=== PATIENT | female | born 1975 | race Caucasian/White ===

== ENCOUNTER 2016-10-11 12:41 | Emergency (ER) | payer OTHER ==
[2016-10-11 12:46] VITALS: BP 113/82; PULSE 67; TEMP 98.8; BMI 36.4
[2016-10-11] MEDS ORDERED: KETOROLAC TROMETHAMINE 60 MG/2 ML VIAL ONE (13:17)
[2016-10-11] MEDS ORDERED: DEXAMETHASONE 4 MG TABLET (FP) ONE (13:17)
[2016-10-11] MEDS ORDERED: DEXAMETHASONE SOD PHOSPHATE 10 MG/1 ML VIAL IM ONE (13:20)
[2016-10-11] MEDS ORDERED: KETOROLAC TROMETHAMINE 60 MG/2 ML VIAL IM ONE (13:20)
--- NOTE | 2016-10-11 13:28 | PDOC ---
History of Present Illness - General Chief Complaint: Pain Stated Complaint: PAIN Time Seen by Provider: 10/11/16 13:05 History Source: Patient Exam Limitations: No Limitations - History of Present Illness Initial Comments: 10/11/16 13:20 Patient came for evaluation of severe right elbow pain, states has had no changes in exercise, activity, no recent trauma. Has had problems with her low back. Took a Naprosyn last night with minimal resolved. Denies numbness or tingling to hand, but movement of hand and grasp reproduces pain 10/11/16 13:24 Occurred: reports: last week Severity: reports: moderate Pain Location: reports: upper extremity Method of Injury: Yes: unknown Modifying Factors: improves with: None, pain medication Associated Symptoms (Fall): denies symptoms Past History - Travel Traveled outside of the country in the last 30 days: No Close contact w/someone who was outside of country & ill: No - Past Medical History Allergies/Adverse Reactions: Allergies Allergy/AdvReac Type Severity Reaction Status Date / Time No Known Allergies Allergy Verified 10/11/16 12:45 Home Medications: Ambulatory Orders Azithromycin [Zithromax Z-MATHEW (5 DAYS)] 250 mg PO ASDIR #6 tablet 07/15/13 No Home Medications 0 dose .ROUTE UTDICT 07/15/13 Cyclobenzaprine HCl [Flexeril -] 5 mg PO TID PRN #12 tablet 05/15/16 Naproxen [Naprosyn -] 500 mg PO BID PRN #14 tablet 05/15/16 Naproxen [Naprosyn -] 500 mg PO BID #30 tablet 10/11/16 Anemia: Yes Kidney Stones: Yes Psychiatric Problems: Yes (BIPOLAR) Other medical history: PCSD - Surgical History Cholecystectomy: Yes Gastric Stapling: No (GASTRIC SLEEVE) GI Surgery: Yes - Psycho/Social/Smoking Cessation Hx Anxiety: No Suicidal Ideation: No Smoking History: Never smoked Hx Alcohol Use: No Drug/Substance Use Hx: No Substance Use Type: None Trauma Specific PMHX - Complaint Specific PMHX Back Injury: Yes Review of Systems - Review of Systems Able to Perform ROS?: Yes Is the patient limited Faroese proficient: Yes Constitutional: Yes: Symptoms Reported, See HPI. No: Fever HEENTM: No: Symptoms Reported Respiratory: No: Symptoms reported Musculoskeletal: Yes: Symptoms Reported, See HPI, Joint Swelling Neurological: Yes: Symptoms reported, See HPI All Other Systems: Reviewed and Negative *Physical Exam - Vital Signs Last Vital Signs Temp Pulse Resp BP Pulse Ox 98.8 F 67 20 113/82 98 10/11/16 12:42 10/11/16 12:42 10/11/16 12:42 10/11/16 12:42 10/11/16 12:42 - Physical Exam General Appearance: Yes: Nourished, Appropriately Dressed, Apparent Distress, Mild Distress HEENT: positive: ERNESTO, Normal ENT Inspection, TMs Normal, Pharynx Normal Neck: positive: Supple Respiratory/Chest: positive: Lungs Clear Musculoskeletal: positive: Normal Inspection, Decreased Range of Motion, Other ( neurovascular intact to hand, radial and ulnar pulses strong). negative: Vertebral Tenderness Extremity: positive: Normal Capillary Refill, Tender. negative: Normal Inspection (no redness, swelling, or lesions noted to elbow joint. Unable to extend without pain at lateral epicondyles past 20), Normal Range of Motion ( tenderness with extension at elbow, reproduced tenderness with supination and pronation at wrist and movement of fingers with tenderness insertion sites of lateral elbow.) Integumentary: positive: Normal Color, Dry, Warm Neurologic: positive: casino runner II-XII NML intact, Fully Oriented, Alert, Normal Mood/ Affect, Normal Response, Motor Strength 5/5 Progress Note - Progress Note Progress Note: Lateral epicondylitis, will treat with NSAIDs and 1 dose of Decadron today. Encouraged follow-up with or so for further evaluation/possible treatment *DC/Admit/Observation/Transfer Diagnosis at time of Disposition: Epicondylitis, lateral, right - Discharge Dispostion Disposition: HOME Condition at time of disposition: Stable Admit: No - Referrals Referrals: Deion Sams MD [Staff Physician] - - Patient Instructions Printed Discharge Instructions: DI for Lateral Epicondylitis (Tennis Elbow) Additional Instructions: Rest, ice to area on and off for 15 minutes 4-6 times a day Avoid heavy lifting or exercise until pain and swelling is resolved or until further directed Keep area highly elevated to reduce swelling Use splints/Billy wrap as directed Followup with orthopedist in one to 2 days if not improving, if significantly improved may wait one week for followup with orthopedist May use Naprosyn 500mg mg tablets every 8 hours as needed for pain
== END 2016-10-11 13:40 | disposition home or self-care (01) ==
LOC: JERFT 12:41
PROC: 3E0233Z Introduction of Anti-inflammatory into Muscle, Percutaneous Approach (ICD-10-PCS; principal; 2016-10-11)
PROC: 3E0233Z Introduction of Anti-inflammatory into Muscle, Percutaneous Approach (ICD-10-PCS; 2016-10-11)
DX: M77.11 Lateral epicondylitis, right elbow (principal)
CPT/HCPCS: 96372; 99281-25

== ENCOUNTER 2016-12-05 10:07 | Emergency (ER) | payer OTHER ==
[2016-12-05 10:41] VITALS: BMI 35.6
--- NOTE | 2016-12-05 11:14 | PDOC ---
History of Present Illness - General History Source: Unavil. due to pt. cond. <Carlito Ramires - Last Filed: 12/05/16 11:13> - General History Source: Patient Exam Limitations: No Limitations - History of Present Illness Initial Comments: 12/05/16 12:02 The patient is a 41 year old female, with a significant past medical history of migraines, anemia, kidney stones, bipolar disorder, and depression, who presents to the emergency department complaining of migraines for approximately 3 days. Patient reports her migraine has worsened since they began. Yesterday, she reports she felt as if she were going to pass out, secondary to migraine and dizziness. Patient reports when she went to sit down to see if her dizziness would resolve, but upon bending to sit she fell down five steps. Patient reports trauma to her neck, right scapula, and right side of her body. She denies any other head trauma or LOC. Since her fall, patient reports numbness and paresthesias to the hand, right greater than left. She reports photophobia and blurry vision. Patient reports taking tylenol and her migraine medication for her symptoms, with minimal relief. She reports associated nausea and vomiting. She admits she is able to tolerate fluids, but not solids. Patient reports shes had similar migraines in the past. During her previous migraine 1 month ago, patient reports syncopizing. Patient states she has gained approximately 40 pounds in the past month. She reports increased tiredness and dyspnea on exertion secondary to weight gain. Patient report her last menstrual period was at the end of October. She states her periods have been increasingly heavy during the last 4 months and has had to receive a blood transfusion due to anemia. She states she received an ultrasound for her heavy periods, which were negative. During the past month, patient admits to increased stresses in her life. The patient denies any fever, chills, or cough. She denies any chest pain, diaphoresis, or palpitations. She denies any diarrhea , constipation, or changes in urination patterns. Allergies: NKDA Past Surgical History: Cholecystectomy, Gastric Sleeve Social History: Non smoker. No ETOH or drug use <Ajay Torre - Last Filed: 12/05/16 17:08> - General Chief Complaint: Lightheaded Stated Complaint: BACK PAIN/LEG PAIN Past History - Past Medical History Anemia: Yes Kidney Stones: Yes Psychiatric Problems: Yes (BIPOLAR, depression) - Surgical History Cholecystectomy: Yes Gastric Stapling: No (GASTRIC SLEEVE) GI Surgery: Yes - Psycho/Social/Smoking Cessation Hx Anxiety: No Suicidal Ideation: No Smoking History: Never smoked Have you smoked in the past 12 months: No Information on smoking cessation initiated: No Hx Alcohol Use: No Drug/Substance Use Hx: No Substance Use Type: None <Carlito Ramires - Last Filed: 12/05/16 11:13> <Ajay Torre - Last Filed: 12/05/16 17:08> - Past Medical History Allergies/Adverse Reactions: Allergies Allergy/AdvReac Type Severity Reaction Status Date / Time No Known Allergies Allergy Verified 12/05/16 10:41 Home Medications: Ambulatory Orders Aripiprazole 5 mg PO DAILY 12/05/16 Clonazepam 0.5 mg PO BID 12/05/16 Ibuprofen 800 mg PO TID 12/05/16 Sertraline HCl 50 mg PO HS 12/05/16 Sumatriptan Succinate [Imitrex -] 50 mg PO ONCE 12/05/16 Topiramate 25 mg PO BID 12/05/16 Trazodone HCl 100 mg PO HS 12/05/16 Review of Systems - Review of Systems Able to Perform ROS?: Yes Comments:: 12/05/16 12:02 GENERAL/CONSTITUTIONAL: No fever or chills. No weakness. HEAD, EYES, EARS, NOSE AND THROAT: Yes: +Blurry vision, +photophobia. No ear pain or discharge. No sore throat. CARDIOVASCULAR: No chest pain. RESPIRATORY: Yes: +Dyspnea on exertion. No cough, wheezing, or hemoptysis. GASTROINTESTINAL: Yes: +nausea, +vomiting. No diarrhea or constipation. GENITOURINARY: No dysuria, frequency, or change in urination. MUSCULOSKELETAL: Yes: +Right scapula pain, +neck pain. No joint or muscle swelling or pain. SKIN: No rash NEUROLOGIC: Yes: +Migraine, +dizziness. No vertigo, loss of consciousness, or change in strength/sensation. ENDOCRINE: Yes: +Weight gain. No increased thirst. HEMATOLOGIC/LYMPHATIC: Yes: +anemia. No easy bleeding or history of blood clots. ALLERGIC/IMMUNOLOGIC: No hives or skin allergy. <Torre,Giomilsy - Last Filed: 12/05/16 17:08> *Physical Exam - Vital Signs Last Vital Signs Temp Pulse Resp BP Pulse Ox 98.8 F 63 20 148/73 100 12/05/16 10:36 12/05/16 10:36 12/05/16 10:36 12/05/16 10:36 12/05/16 10:36 <Carlito Ramires - Last Filed: 12/05/16 11:13> - Vital Signs Last Vital Signs Temp Pulse Resp BP Pulse Ox 98.8 F 63 20 148/73 100 12/05/16 10:36 12/05/16 10:36 12/05/16 10:36 12/05/16 10:36 12/05/16 10:36 - Physical Exam Comments: 12/05/16 12:09 GENERAL: Obese. Well developed, well nourished. Awake, alert, and fully oriented , in no acute distress HEAD: Normocephalic, no signs of trauma EYES: PERRLA, EOMI, sclera anicteric, conjunctiva clear ENT: Auricles normal inspection, hearing grossly normal, nares patent, oropharynx clear without exudates. Moist mucosa NECK: Normal ROM, supple, no lymphadenopathy, JVD, or masses LUNGS: Breath sounds equal, clear to auscultation bilaterally. No wheezes, and no crackles HEART: Regular rate and rhythm, normal S1 and S2, no murmurs, rubs or gallops ABDOMEN: Soft, nontender, normoactive bowel sounds. No guarding, no rebound. No masses MUSCULOSKELETAL: +R trapezius spasm. +R paraspinal muscle tenderness in lower back. Normal range of motion at all joints. No bony deformities or tenderness. No CVA tenderness. EXTREMITIES: Normal range of motion, no edema. No clubbing or cyanosis. No cords, erythema, or tenderness NEUROLOGICAL: Cranial nerves II through XII grossly intact. Normal speech, normal gait SKIN: Warm, Dry, normal turgor, no rashes or lesions noted. PSYCHIATRIC: Cooperative. Good eye contact. Appropriate mood and affect. <Ajay Torre - Last Filed: 12/05/16 17:08> Heart Score/ECG Review - ECG Intrepretation Comment:: 12/05/16 12:09 Vent Rate: 54 bpm IMPRESSION: Sinus bradycardia with sinus arrhythmia <Ajay Torre - Last Filed: 12/05/16 17:08> ED Treatment Course - LABORATORY CBC & Chemistry Diagram: 12/05/16 11:30 12/05/16 11:30 - RADIOLOGY Radiograph Interpretation: 12/05/16 17:03 EXAM: CT Cervical Spine INTERPRETED BY: Dr. Estrada REVIEWED BY: Dr. Ramires IMPRESSION: Coronal and sagittal reconstruction images were obtained. There is straightening of the cervical spine. No gross fracture, subluxation or prevertebral soft tissue swelling is seen. No jumped facets are identified. There is a 9 mm sclerotic density in C7 vertebral body which is nonspecific. Mild degenerative anterior spondylosis at C5-C6 and C6-C7 level. At C5-C6 level there is mild left paracentral disc bulge with posterior spur formation slightly flattening the left anterior surface of the cervical cord and moderately narrowing the left foramen likely impinging left C6 nerve root. Visualized portion of the airway appears unremarkable. No gross enlarged lymph nodes are identified. Note is made of an approximately 11 mm focal low- attenuation density in left side of the thyroid isthmus for which further evaluation with thyroid ultrasound is needed. Lung windows at the thoracic inlet appear unremarkable. EXAM: Head CT INTERPRETED BY: Dr. Estrada REVIEWED BY: Dr. Ramires IMPRESSION: No significant interval change or acute intracranial pathology is identified. - Medications Given in the ED: ED Medications Discontinued Medications Generic Name Dose Route Start Last Admin Trade Name Freq PRN Reason Stop Dose Admin Acetaminophen 1,000 mg 12/05/16 11:51 12/05/16 12:00 Ofirmev Injection - IVPB 12/05/16 11:52 1,000 mg ONCE ONE Administration <Ajay Torre - Last Filed: 12/05/16 17:08> *DC/Admit/Observation/Transfer - Attestations Physician Attestion: 12/05/16 11:14 I, Dr. Carlito Ramiers, attest that this document has been prepared under my direction and personally reviewed by me in its entirety. I further attest, that it accurately reflects all work, treatment, procedures and medical decision -making performed by me. <Carlito Ramires - Last Filed: 12/05/16 11:13> - Attestations Scribe Attestion: 12/05/16 12:09 Documentation prepared by Ajay Torre, acting as medical claims assistant for Carlito Ramires DO. <Ajay Torre - Last Filed: 12/05/16 17:08> Diagnosis at time of Disposition: Fall, Migraine - Discharge Dispostion Disposition: HOME Condition at time of disposition: Stable - Referrals Referrals: Onelia Hays MD [Staff Physician] - - Patient Instructions Printed Discharge Instructions: DI for Migraine Additional Instructions: You must follow with your primary care physician. You must also follow with your neurologist for your migraines. If your symptoms worsen come back to ER.
[2016-12-05] MEDS ORDERED: ACETAMINOPHEN 1000 MG/100 ML VIAL (NON FORMULARY) IVPB ONE (11:51)
--- NOTE | 2016-12-05 11:51 | PDOC ---
History of Present Illness - General Chief Complaint: Lightheaded Stated Complaint: BACK PAIN/LEG PAIN Time Seen by Provider: 12/05/16 11:13 History Source: Patient Exam Limitations: No Limitations - History of Present Illness Initial Comments: 41 y/o F w/sig PMH migraines, anemia, bipolar disorder, depression presents to ER after falling yesterday from 5 stairs due to feeling faint and having increasingly worsening nausea today. Pt did not lose consciousness upon before or after fall and fall was witnessed by daughter. She has been having worsening migraine symptoms for 3 days which were not relieved with her migraine meds. She states since falling she has had worsening nausea, tingling in right fingertips, pain in back around neck, and some blurry vision. She has been able to tolerate water but is unable to eat. Over the last 4 months pt has been having heavier than usual menstrual periods. LMP was at the end of October. She also reports increased stress in life. Pt reports losing consciousness 1 - 2 months ago and was taken to [facility] and was found to be anemic and transfused for anemia. Past History - Past Medical History Allergies/Adverse Reactions: Allergies Allergy/AdvReac Type Severity Reaction Status Date / Time No Known Allergies Allergy Verified 12/05/16 10:41 Home Medications: Ambulatory Orders Aripiprazole 5 mg PO DAILY 12/05/16 Clonazepam 0.5 mg PO BID 12/05/16 Ibuprofen 800 mg PO TID 12/05/16 Sertraline HCl 50 mg PO HS 12/05/16 Sumatriptan Succinate [Imitrex -] 50 mg PO ONCE 12/05/16 Topiramate 25 mg PO BID 12/05/16 Trazodone HCl 100 mg PO HS 12/05/16 Anemia: Yes Kidney Stones: Yes Psychiatric Problems: Yes (BIPOLAR, depression) - Surgical History Cholecystectomy: Yes Gastric Stapling: No (GASTRIC SLEEVE) GI Surgery: Yes - Psycho/Social/Smoking Cessation Hx Anxiety: No Suicidal Ideation: No Smoking History: Never smoked Have you smoked in the past 12 months: No Information on smoking cessation initiated: No Hx Alcohol Use: No Drug/Substance Use Hx: No Substance Use Type: None Review of Systems - Review of Systems Able to Perform ROS?: Yes Comments:: CONSTITUTIONAL: Absent: fever, chills, diaphoresis, generalized weakness, malaise, loss of appetite HEENT: Absent: rhinorrhea, nasal congestion, throat pain, throat swelling, difficulty swallowing, mouth swelling, ear pain, eye pain, visual Changes CARDIOVASCULAR: +heart racing, light-headedness Absent: chest pain, syncope, palpitations, peripheral edema RESPIRATORY: Absent: cough, shortness of breath, dyspnea with exertion, orthopnea, wheezing, stridor, hemoptysis GASTROINTESTINAL:Absent: abdominal pain, abdominal distension, nausea, vomiting , diarrhea, constipation, melena, hematochezia GENITOURINARY: Absent: dysuria, frequency, urgency, hesitancy, hematuria, flank pain, genital pain MUSCULOSKELETAL: Absent: myalgia, arthralgia, joint swelling SKIN: Absent: rash, itching, pallor HEMATOLOGIC/IMMUNOLOGIC: Absent: easy bleeding, easy bruising, lymphadenopathy, frequent infections ENDOCRINE:Absent: unexplained weight gain, unexplained weight loss, heat intolerance, cold intolerance NEUROLOGIC: +headache, light-headedness, tingling/numbness in R fingertips Absent: focal weakness, dizziness, unsteady gait, seizure, mental status changes , bladder or bowel incontinence PSYCHIATRIC: Absent: anxiety, depression, suicidal or homicidal ideation, hallucinations *Physical Exam - Vital Signs Last Vital Signs Temp Pulse Resp BP Pulse Ox 98.8 F 63 20 148/73 100 12/05/16 10:36 12/05/16 10:36 12/05/16 10:36 12/05/16 10:36 12/05/16 10:36 - Physical Exam Comments: GENERAL: Well developed, well nourished. Awake and alert. No acute distress. HEENT: Normocephalic, atraumatic. PERRLA, EOMI. No conjunctival pallor. Sclera are non-icteric. Moist mucous membranes. Oropharynx clear. NECK: Supple. Full ROM. No lymphadenopathy. CARDIOVASCULAR: Regular rate and rhythm. No murmurs, rubs, or gallops. Distal pulses are 2+ and symmetric. PULMONARY: No evidence of respiratory distress. Lungs clear to auscultation bilaterally. No wheezing, rales or rhonchi. ABDOMINAL: Soft. Obese. Non-tender. Non-distended. No rebound or guarding. No organomegaly. Normoactive bowel sounds. MUSCULOSKELETAL: +R trapezius spasm. +R paraspinal muscle tenderness in lower back. Normal range of motion at all joints. No bony deformities or tenderness. No CVA tenderness. EXTREMITIES: No cyanosis. No edema. SKIN: Warm and dry. Normal capillary refill. No rashes. No jaundice. NEUROLOGICAL: Alert, awake, appropriate. Cranial nerves 2-12 grossly intact. No deficits to light touch in face, upper extremities and lower extremities. No motor deficits in the in face, upper extremities and lower extremities. Normal speech. PSYCHIATRIC: Cooperative. Good eye contact. Appropriate mood and affect. ED Treatment Course - LABORATORY CBC & Chemistry Diagram: 12/05/16 11:30 12/05/16 11:30 - RADIOLOGY Radiology Studies Ordered: Category Date Time Status CERVICAL SPINE CT W/O CONTR [CT] Stat CT Scan 12/05/16 11:[address] WITHOUT CONTRAST [CT] Stat CT Scan 12/05/16 11:38 Ordered CHEST PA & LAT [RAD] Stat Radiology 12/05/16 11:38 Ordered *DC/Admit/Observation/Transfer Diagnosis at time of Disposition: Fall, Migraine - Discharge Dispostion Disposition: HOME Condition at time of disposition: Stable - Referrals Referrals: Onelia Hays MD [Staff Physician] - - Patient Instructions Printed Discharge Instructions: DI for Migraine Additional Instructions: You must follow with your primary care physician. You must also follow with your neurologist for your migraines. If your symptoms worsen come back to ER. - Post Discharge Activity
[2016-12-05 11:53] LABS: URINE APPEARANCE SLCLOUDY; URINE BILIRUBIN NEGATIVE (NEGATIVE); URINE BLOOD NEGATIVE (NEGATIVE); URINE COLOR LTYELLOW; URINE GLUCOSE (UA) NEGATIVE (NEGATIVE); URINE KETONE NEGATIVE (NEGATIVE); URINE NITRITE NEGATIVE (NEGATIVE); URINE PROTEIN NEGATIVE (NEGATIVE); URINE UROBILINOGEN NEGATIVE E.U./dl (0.2-1.0)
[2016-12-05 11:57] LABS: BASOPHIL 0.9 % (0-2.0); EOSINOPHIL 1.4 % (0-4.5); MCHC 31.4 g/dl (32.0-36.0); MEAN CELL VOLUME 73.1 fl (80-96); MEAN PLT VOLUME 7.4 fl (7.5-11.1); NEUTROPHILS 71.1 % (42.8-82.8); PLATELET COUNT 282 K/MM3 (134-434); WHITE BLOOD COUNT 8.2 K/mm3 (4.0-10.0)
[2016-12-05] MEDS ORDERED: ACETAMINOPHEN INJECTION 100 ML IVPB ONE (11:57)
[2016-12-05 12:05] LABS: URINE LEUK ESTERASE 2+ (NEGATIVE)
[2016-12-05 12:20] LABS: URINE MUCUS RARE; URINE RBC 1 /hpf (0-3); URINE WBC 3 /hpf (3-5)
[2016-12-05 12:22] LABS: ALBUMIN 3.5 g/dl (3.4-5.0); ANION GAP 8 (8-16); BILIRUBIN,TOTAL 0.2 mg/dL (0.2-1.0); CALCIUM 7.9 mg/dL (8.5-10.1); CO2 25 mmol/L (21-32); CREATININE 0.7 mg/dL (0.55-1.02); GLUCOSE,RANDOM 85 mg/dL (74-106); SGOT/AST 11 U/L (15-37); SGPT/ALT 17 U/L (12-78); TOT PROT 6.8 g/dl (6.4-8.2)
[2016-12-05 12:30] LABS: ALK PHOS 52 U/L (45-117); THYROID STIMULATING HORMONE 0.71 uIU/ml (0.358-3.74)
[2016-12-05] MEDS ORDERED: ONDANSETRON 4 MG/2 ML VIAL IVPUSH ONE (12:44)
[2016-12-05] MEDS ORDERED: morphine CARPU-JECT 2 MG/1 ML DISP.SYRIN IVPUSH ONE (12:44)
[2016-12-05] MEDS ORDERED: morphine CARPU-JECT 2 MG/1 ML DISP.SYRIN ONE (12:53)
[2016-12-05] MEDS ORDERED: ONDANSETRON 4 MG/2 ML VIAL ONE (12:54)
[2016-12-05 15:32] VITALS: BP 127/78; PULSE 69; TEMP 98.4
--- NOTE | 2016-12-05 16:10 | EKG ---
Test Reason : Blood Pressure : / mmHG Vent. Rate : 054 BPM Atrial Rate : 054 BPM P-R Int : 174 ms QRS Dur : 088 ms QT Int : 452 ms P-R-T Axes : 012 042 025 degrees QTc Int : 428 ms SINUS BRADYCARDIA WITH SINUS ARRHYTHMIA OTHERWISE NORMAL ECG WHEN COMPARED WITH ECG OF 13-NOV-2005 00:52, NO SIGNIFICANT CHANGE WAS FOUND Confirmed by AFUA ROQUE MD ([id number]) on 12/05/2016 4:10:20 PM Referred By: Confirmed By:AFUA ROQUE MD
== END 2016-12-05 15:30 | disposition home or self-care (01) ==
LOC: JER 10:07
PROC: 3E033NZ Introduction of Analgesics, Hypnotics, Sedatives into Peripheral Vein, Percutaneous Approach (ICD-10-PCS; principal; 2016-12-05)
PROC: 3E033NZ Introduction of Analgesics, Hypnotics, Sedatives into Peripheral Vein, Percutaneous Approach (ICD-10-PCS; 2016-12-05)
PROC: 3E033GC Introduction of Other Therapeutic Substance into Peripheral Vein, Percutaneous Approach (ICD-10-PCS; 2016-12-05)
DX: G43.909 Migraine, unspecified, not intractable, without status migrainosus (principal); M54.2 Cervicalgia; M25.511 Pain in right shoulder; W10.8XXA Fall (on) (from) other stairs and steps, initial encounter; Y93.89 Activity, other specified; Y92.038 Other place in apartment as the place of occurrence of the external cause; D64.9 Anemia, unspecified; F31.9 Bipolar disorder, unspecified; Z98.84 Bariatric surgery status
CPT/HCPCS: 36415; 70450-TC; 71020-TC; 72125-TC; 80053; 81003; 81015; 84443; 84703; 85025; 93005; 93010; 96374; 96375; 99283-25

== ENCOUNTER 2017-03-03 10:21 | Emergency (ER) | payer OTHER ==
[2017-03-03 10:31] VITALS: BMI 35.6
[2017-03-03] MEDS ORDERED: METOCLOPRAMIDE HCL INJECTION 10 MG/2 ML VIAL IVPB ONE (11:32)
[2017-03-03] MEDS ORDERED: KETOROLAC TROMETHAMINE 30 MG/1 ML VIAL IVPUSH ONE (11:32)
[2017-03-03] MEDS ORDERED: SODIUM CHLORIDE 1,000 ML IV STA (11:32)
[2017-03-03] MEDS ORDERED: KETOROLAC TROMETHAMINE 30 MG/1 ML VIAL ONE (11:40)
[2017-03-03] MEDS ORDERED: METOCLOPRAMIDE HCL INJECTION 10 MG/2 ML VIAL ONE (11:40)
[2017-03-03 11:58] LABS: URINE APPEARANCE CLEAR; URINE BILIRUBIN NEGATIVE (NEGATIVE); URINE BLOOD 3+ (NEGATIVE); URINE COLOR LTYELLOW; URINE GLUCOSE (UA) NEGATIVE (NEGATIVE); URINE KETONE NEGATIVE (NEGATIVE); URINE LEUK ESTERASE NEGATIVE (NEGATIVE); URINE NITRITE NEGATIVE (NEGATIVE); URINE PROTEIN NEGATIVE (NEGATIVE); URINE UROBILINOGEN NEGATIVE mg/dL (0.2-1.0)
--- NOTE | 2017-03-03 11:59 | PDOC ---
History of Present Illness - General Chief Complaint: Migraine Headache Stated Complaint: HEADACHE Time Seen by Provider: 03/03/17 11:11 History Source: Patient - History of Present Illness Timing/Duration: reports: other Severity: Yes: severe Associated Symptoms: reports: nausea/vomiting. denies: fever/chills Past History - Past Medical History Allergies/Adverse Reactions: Allergies Allergy/AdvReac Type Severity Reaction Status Date / Time No Known Allergies Allergy Verified 03/03/17 10:28 Home Medications: Ambulatory Orders Aripiprazole [Abilify] 20 mg PO DAILY 03/03/17 Sumatriptan Succ/Naproxen Sod [Treximet 85-500 mg Tablet] 1 each PO ASDIR #12 tablet 03/03/17 Anemia: Yes Kidney Stones: Yes Psychiatric Problems: Yes (BIPOLAR, depression) Other medical history: anxeity,panic attachks,migrains - Surgical History Cholecystectomy: Yes Gastric Stapling: No (GASTRIC SLEEVE) GI Surgery: Yes - Psycho/Social/Smoking Cessation Hx Anxiety: No Suicidal Ideation: No Smoking History: Never smoked Have you smoked in the past 12 months: No Information on smoking cessation initiated: No Hx Alcohol Use: No Drug/Substance Use Hx: No Substance Use Type: None Review of Systems - Review of Systems Constitutional: No: Chills, Fever ABD/GI: Yes: Nausea, Vomiting Neurological: Yes: Headache, Dizziness *Physical Exam - Vital Signs Last Vital Signs Temp Pulse Resp BP Pulse Ox 98.3 F 78 18 127/93 100 03/03/17 10:29 03/03/17 10:29 03/03/17 10:29 03/03/17 10:29 03/03/17 10:29 - Physical Exam General Appearance: Yes: Appropriately Dressed. No: Apparent Distress HEENT: positive: Normal Voice Neck: positive: Supple Respiratory/Chest: negative: Respiratory Distress Integumentary: positive: Dry, Warm Neurologic: positive: Fully Oriented, Alert, Normal Mood/Affect, Motor Strength 5/5 Medical Decision Making - Medical Decision Making 03/03/17 11:55 41-year-old female, history of bipolar, PTSD, on abilify, anxiety on clonazepam , migraines, was getting Q2 weeklyy Botox injections which never helped her headache as per patient states neurologist no longer takes her insurance and scheduled to see a new neurologist at [facility] in May. Patient here with diffuse MELÉNDEZ that started yesterday. States pain diffuse, sharp, constant, with a severity of 8 out of 10, and associated with dizziness, nausea, vomiting , similar to her usual migraines. Took Excedrin and Motrin with no relief. see exam MELÉNDEZ Similar to pt's migraine Not relieved w/ otc meds No red flags at this time -pain control in ED and reassess -has neuro f/u 03/03/17 11:59 03/03/17 13:02 03/03/17 13:30 Pt sleeping comfortably in ED. Feels well enough to go home. Will dc w/ small dose of treximet and have pt f/u with neuro 03/03/17 13:35 *DC/Admit/Observation/Transfer Diagnosis at time of Disposition: Headache Qualifiers: Headache type: unspecified Headache chronicity pattern: episodic headache Intractability: not intractable Qualified Code(s): R51 - Headache - Discharge Dispostion Disposition: HOME Condition at time of disposition: Improved - Prescriptions Prescriptions: Sumatriptan Succ/Naproxen Sod [Treximet 85-500 mg Tablet] 1 each PO ASDIR #12 tablet - Patient Instructions Printed Discharge Instructions: Migraine -- Adult Additional Instructions: Take medication as directed and follow-up with your neurologist.
[2017-03-03] MEDS ORDERED: ACETAMINOPHEN 325 MG TABLET (FP) PO ONE (12:54)
--- NOTE | 2017-03-03 12:57 | PDOC ---
*Physical Exam - Vital Signs Last Vital Signs Temp Pulse Resp BP Pulse Ox 98.3 F 78 18 127/93 100 03/03/17 10:29 03/03/17 10:29 03/03/17 10:29 03/03/17 10:29 03/03/17 10:29 ED Treatment Course - ADDITIONAL ORDERS Additional order review: Laboratory Results 03/03/17 11:43 Urine Color Ltyellow Urine Appearance Clear Urine pH 7.0 Urine Protein Negative Urine Glucose (UA) Negative Urine Ketones Negative Urine Blood 3+ H Urine Nitrite Negative Urine Bilirubin Negative Urine Urobilinogen Negative Ur Leukocyte Esterase Negative Urine HCG, Qual Negative - Medications Given in the ED: ED Medications Discontinued Medications Generic Name Dose Route Start Last Admin Trade Name Freq PRN Reason Stop Dose Admin Sodium Chloride 1,000 mls @ 1,000 mls/hr 03/03/17 11:32 03/03/17 11:59 Normal Saline - IV 03/03/17 12:31 1,000 mls/hr ASDIR STA Administration Ketorolac Tromethamine 30 mg 03/03/17 11:32 03/03/17 11:59 Toradol Injection - IVPUSH 03/03/17 11:33 30 mg ONCE ONE Administration Metoclopramide HCl 10 mg 03/03/17 11:32 03/03/17 11:59 Reglan Injection - IVPB 03/03/17 11:33 10 mg ONCE ONE Administration Medical Decision Making - Medical Decision Making 03/03/17 12:56 41 yo F h/o migraines Pt has not been able to follow up with her Neurologist for botox injection Pt presents to the ER with headache similar to prior migraine headache Given Toradol, Reglan Reassess Pt seen by Midlevel Provider under my direct supervision Ancillary studies reviewed I agree with plan as outlined by Midlevel Provider *DC/Admit/Observation/Transfer Diagnosis at time of Disposition: Headache - Discharge Dispostion Disposition: HOME Condition at time of disposition: Improved - Prescriptions Prescriptions: Sumatriptan Succ/Naproxen Sod [Treximet 85-500 mg Tablet] 1 each PO ASDIR #12 tablet - Patient Instructions Printed Discharge Instructions: Migraine -- Adult Additional Instructions: Take medication as directed and follow-up with your neurologist.
[2017-03-03] MEDS ORDERED: ACETAMINOPHEN 325 MG TABLET (FP) ONE (13:11)
[2017-03-03 13:13] LABS: URINE MUCUS RARE; URINE RBC 121 /hpf (0-3); URINE WBC 6 /hpf (3-5)
[2017-03-03 13:50] VITALS: BP 128/81; PULSE 75; TEMP 98.4
== END 2017-03-03 13:52 | disposition home or self-care (01) ==
LOC: JER 10:21
PROC: 3E0333Z Introduction of Anti-inflammatory into Peripheral Vein, Percutaneous Approach (ICD-10-PCS; principal; 2017-03-03)
PROC: 3E033GC Introduction of Other Therapeutic Substance into Peripheral Vein, Percutaneous Approach (ICD-10-PCS; 2017-03-03)
PROC: 3E0337Z Introduction of Electrolytic and Water Balance Substance into Peripheral Vein, Percutaneous Approach (ICD-10-PCS; 2017-03-03)
DX: R51 Headache (principal); F31.9 Bipolar disorder, unspecified; F41.9 Anxiety disorder, unspecified; F41.0 Panic disorder [episodic paroxysmal anxiety]; F43.10 Post-traumatic stress disorder, unspecified; D64.9 Anemia, unspecified; Z98.84 Bariatric surgery status
CPT/HCPCS: 81003; 81015; 84703; 96361; 96374; 96375; 99282-25

== ENCOUNTER 2017-08-21 08:35 | Emergency (ER) | payer OTHER ==
[2017-08-21 08:52] VITALS: BP 150/79; PULSE 77; TEMP 98.7; BMI 39.9
[2017-08-21] MEDS ORDERED: KETOROLAC TROMETHAMINE 60 MG/2 ML VIAL IM ONE (09:32)
[2017-08-21] MEDS ORDERED: CYCLOBENZAPRINE HCL 10 MG TABLET (FP) PO ONE (09:33)
[2017-08-21] MEDS ORDERED: KETOROLAC TROMETHAMINE 60 MG/2 ML VIAL ONE (09:34)
[2017-08-21] MEDS ORDERED: CYCLOBENZAPRINE HCL 10 MG TABLET (FP) ONE (09:35)
--- NOTE | 2017-08-21 09:37 | PDOC ---
History of Present Illness - General Chief Complaint: Back Pain Stated Complaint: PAIN/ LOWER BACK, LEGS Time Seen by Provider: 08/21/17 08:59 History Source: Patient - History of Present Illness Occurred: reports: yesterday Severity: reports: moderate Pain Location: reports: back, lower extremity Past History - Past Medical History Allergies/Adverse Reactions: Allergies Allergy/AdvReac Type Severity Reaction Status Date / Time No Known Allergies Allergy Verified 03/03/17 10:28 Home Medications: Ambulatory Orders Aripiprazole [Abilify] 20 mg PO DAILY 03/03/17 Benzonatate 150 mg PO ASDIR 08/21/17 Clonazepam [Klonopin -] 0.5 mg PO DAILY 08/21/17 Cyclobenzaprine HCl [Flexeril 10 mg] 10 mg PO TID PRN #9 tablet 08/21/17 Ferrous Sulfate 325 mg PO ASDIR 08/21/17 Ibuprofen [Motrin -] 800 mg PO Q6H #30 tablet 08/21/17 Ketorolac Injection [Toradol] 30 mg IJ ASDIR 08/21/17 Sertraline HCl 50 mg PO ASDIR 08/21/17 Topiramate 25 mg PO ASDIR 08/21/17 Trazodone HCl 100 mg PO ASDIR 08/21/17 Anemia: Yes COPD: No Kidney Stones: Yes Psychiatric Problems: Yes (BIPOLAR, depression) - Surgical History Cholecystectomy: Yes Gastric Stapling: No (GASTRIC SLEEVE) GI Surgery: Yes - Suicide/Smoking/Psychosocial Hx Smoking History: Never smoked Have you smoked in the past 12 months: No Information on smoking cessation initiated: No Hx Alcohol Use: No Drug/Substance Use Hx: No Substance Use Type: None Trauma Specific PMHX - Complaint Specific PMHX Back Injury: Yes Review of Systems - Review of Systems Constitutional: No: Chills, Fever Musculoskeletal: Yes: Back Pain, Joint Pain. No: Joint Swelling Neurological: No: Numbness, Tingling, Weakness *Physical Exam - Vital Signs Last Vital Signs Temp Pulse Resp BP Pulse Ox 98.7 F 77 20 150/79 100 08/21/17 08:50 08/21/17 08:50 08/21/17 08:50 08/21/17 08:50 08/21/17 08:50 - Physical Exam General Appearance: Yes: Appropriately Dressed. No: Apparent Distress HEENT: positive: Normal Voice Neck: positive: Supple Respiratory/Chest: negative: Respiratory Distress Gastrointestinal/Abdominal: positive: Soft. negative: Tender Musculoskeletal: positive: Normal Inspection. negative: CVA Tenderness, Vertebral Tenderness Extremity: positive: Normal Inspection, Tender (to anterior knee, no apprehension sign, no e/o joint laxity/instability, able to bear weight) Medical Decision Making - Medical Decision Making 08/21/17 09:33 42-year-old female, history of bipolar disorder, anxiety, depression, sciatica, chronic lower back pain, not on pain meds here with her usual bilateral lower back pain that started yesterday. Pain worse w/ flexion. No radiation of pain and no lower extremity weakness, saddle anesthesia or bowel or bladder incontinence. Patient also complaining of pain to right knee that started several days ago, worse when getting up from a sitting position. See exam Acute on chronic lower back pain No red flags at this time, i.e cauda equina, infxn, etc -pain control and reassess Atraumatic R knee pain Possible patellofemoral syndrome given hx -pain control -ortho f/u 08/21/17 09:55 Reports feeling better with pain meds and requesting discharge at this time *DC/Admit/Observation/Transfer Diagnosis at time of Disposition: Chronic lower back pain Qualifiers: Back pain laterality: unspecified Sciatica presence: with sciatica Sciatica laterality: sciatica laterality unspecified Qualified Code(s): M54.40 - Lumbago with sciatica, unspecified side; G89.29 - Other chronic pain; G89.29 - Other chronic pain - Discharge Dispostion Disposition: HOME Condition at time of disposition: Improved - Prescriptions Prescriptions: Cyclobenzaprine HCl [Flexeril 10 mg] 10 mg PO TID PRN #9 tablet PRN Reason: Back Pain Ibuprofen [Motrin -] 800 mg PO Q6H #30 tablet - Referrals Referrals: Gianluca Corbett MD [Staff Physician] - - Patient Instructions Printed Discharge Instructions: Low Back Pain Additional Instructions: Take medication as directed and continue to follow-up with your PMD. Follow-up with orthopedic - Post Discharge Activity
== END 2017-08-21 09:57 | disposition home or self-care (01) ==
LOC: JERFT 08:35
PROC: 3E0233Z Introduction of Anti-inflammatory into Muscle, Percutaneous Approach (ICD-10-PCS; principal; 2017-08-21)
DX: M54.40 Lumbago with sciatica, unspecified side (principal); G89.29 Other chronic pain; D64.9 Anemia, unspecified; Z98.84 Bariatric surgery status; F31.9 Bipolar disorder, unspecified
CPT/HCPCS: 96372; 99281-25

== ENCOUNTER 2018-07-23 12:19 | Emergency (ER) | payer OTHER ==
[2018-07-23 12:26] VITALS: BP 155/82; PULSE 68; TEMP 98.7; BMI 44.9
[2018-07-23] MEDS ORDERED: KETOROLAC TROMETHAMINE 60 MG/2 ML VIAL IM ONE (13:48)
[2018-07-23] MEDS ORDERED: KETOROLAC TROMETHAMINE 60 MG/2 ML VIAL ONE (13:50)
--- NOTE | 2018-07-23 13:55 | PDOC ---
History of Present Illness - General Chief Complaint: Injury Stated Complaint: FALL, INJURY Time Seen by Provider: 07/23/18 13:21 History Source: Patient Exam Limitations: No Limitations - History of Present Illness Initial Comments: 07/23/18 13:49 Slipped on stairs causing her to fall and buttocks and sliding down 6-7 stairs. Denies LOC, or extremity pain. Patient here with complaints of neck pain, headache pain, and upper lower back pain. He suffers from headaches and is concerned may re-exacerbate her headache pain. Has scheduled appointment with headache specialist/neurologist the end of this month. 07/23/18 14:11 Occurred: reports: just prior to arrival Severity: reports: mild Pain Location: reports: back, neck Method of Injury: Yes: fall Modifying Factors: improves with: None Loss of Consciousness: no loss of consciousness Associated Symptoms (Fall): headache, muscle spasms, neck pain Past History - Travel Traveled outside of the country in the last 30 days: No Close contact w/someone who was outside of country & ill: No - Past Medical History Allergies/Adverse Reactions: Allergies Allergy/AdvReac Type Severity Reaction Status Date / Time No Known Allergies Allergy Verified 09/11/17 20:49 Home Medications: Ambulatory Orders Aripiprazole [Abilify] 20 mg PO DAILY 03/03/17 Cyclobenzaprine HCl [Flexeril 10 mg] 10 mg PO TID PRN #9 tablet 08/21/17 Ferrous Sulfate 325 mg PO ASDIR 08/21/17 Ibuprofen [Motrin -] 800 mg PO Q6H #30 tablet 08/21/17 Sertraline HCl 50 mg PO ASDIR 08/21/17 Topiramate 25 mg PO ASDIR 08/21/17 clonazePAM [Klonopin -] 0.5 mg PO DAILY 08/21/17 traZODone HCL [Trazodone HCl] 100 mg PO ASDIR 08/21/17 Methocarbamol [Robaxin -] 1,500 mg PO Q8H PRN #20 tablet 07/23/18 Naproxen [Naprosyn -] 500 mg PO BID #30 tablet 07/23/18 Anemia: Yes COPD: No Kidney Stones: Yes Psychiatric Problems: Yes (BIPOLAR, depression, PTSD) - Surgical History Cholecystectomy: Yes Gastric Stapling: No (GASTRIC SLEEVE) GI Surgery: Yes - Suicide/Smoking/Psychosocial Hx Smoking History: Never smoked Have you smoked in the past 12 months: No Hx Alcohol Use: No Drug/Substance Use Hx: No Substance Use Type: None Trauma Specific PMHX - Complaint Specific PMHX Back Injury: Yes Review of Systems - Review of Systems Able to Perform ROS?: Yes Is the patient limited [place] proficient: Yes Constitutional: Yes: Symptoms Reported HEENTM: Yes: See HPI. No: Symptoms Reported Respiratory: Yes: Symptoms reported, See HPI. No: Cough, Wheezing Musculoskeletal: Yes: Symptoms Reported, See HPI, Back Pain, Joint Swelling, Neck Pain Integumentary: Yes: See HPI. No: Symptoms Reported, Bruising Neurological: Yes: Symptoms reported, See HPI, Headache All Other Systems: Reviewed and Negative *Physical Exam - Vital Signs Last Vital Signs Temp Pulse Resp BP Pulse Ox 98.7 F 68 18 155/82 100 07/23/18 12:24 07/23/18 12:24 07/23/18 12:24 07/23/18 12:24 07/23/18 12:24 - Physical Exam General Appearance: Yes: Nourished, Appropriately Dressed, Apparent Distress, Mild Distress, Moderate Distress HEENT: positive: ERNESTO, Normal ENT Inspection, TMs Normal (no hemotympanum, no drainage from nose or ears, no evidence of skull fracture), Pharynx Normal. negative: Rhinorrhea Neck: positive: Tender (muscles SCM bialteral but worse ), Supple (no CSPINE pain / crepitus or stepoff. ), Other (+ tenderness to bilateral sternocleidomastoid, with significant spasm palpated on the right side with reproduce tenderness and headache pain with pressure at occiput insertion sternocleidomastoid musculature on the right. Range of motion is limited secondary to the spasm. Has no true C-spine and crepitus or step-offs. No spinal pain or crepitus) Respiratory/Chest: positive: Lungs Clear, Normal Breath Sounds. negative: Chest Tender Cardiovascular: positive: Regular Rhythm Gastrointestinal/Abdominal: positive: Normal Bowel Sounds, Soft. negative: Tender, Distended, Guarding, Rebound Integumentary: positive: Normal Color. 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, Fully Oriented, Alert, Normal Mood/ Affect, Normal Response, Motor Strength 5/5 Moderate Sedation - Procedure Monitoring Vital Signs: Procedure Monitoring Vital Signs Temperature 98.7 F 07/23/18 12:24 Pulse Rate 68 07/23/18 12:24 Respiratory Rate 18 07/23/18 12:24 Blood Pressure 155/82 07/23/18 12:24 O2 Sat by Pulse Oximetry (%) 100 07/23/18 12:24 Progress Note - Progress Note Progress Note: Status post fall with whiplash type injury, will treat with Robaxin and Naprosyn , patient with multiple psychiatric medications therefore will be provided with antispasmodics and patient instructed to monitor closely *DC/Admit/Observation/Transfer Diagnosis at time of Disposition: Fall (on) (from) other stairs and steps, initial encounter Cervical myofascial strain Qualifiers: Encounter type: initial encounter Qualified Code(s): S16.1XXA - Strain of muscle, fascia and tendon at neck level, initial encounter - Discharge Dispostion Disposition: HOME Condition at time of disposition: Stable Decision to Admit order: No - Referrals - Patient Instructions Printed Discharge Instructions: DI for Neck Sprain Additional Instructions: Rest, no heavy lifting or exercise until pain is resolved Hot soaks to neck and low back as often as possible/hot showers or Jacuzzis No massage or therapy until spasm is gone Continue Naprosyn 500 mg tablet, 1 tablet every 8 hours for the next 3 days then as needed for pain and swelling Robaxin 750 mg, 2 tablets every 8 hours as needed for spasm If not significant improvement within 24 hours with medication and rest regime, followup with private physician for change in medications and /or therapy. - Post Discharge Activity
== END 2018-07-23 14:18 | disposition home or self-care (01) ==
LOC: JERFT 12:19
PROC: 3E0233Z Introduction of Anti-inflammatory into Muscle, Percutaneous Approach (ICD-10-PCS; principal; 2018-07-23)
DX: S16.1XXA Strain of muscle, fascia and tendon at neck level, initial encounter (principal); W10.8XXA Fall (on) (from) other stairs and steps, initial encounter; Y93.89 Activity, other specified; Y92.89 Other specified places as the place of occurrence of the external cause; Y99.8 Other external cause status; F31.9 Bipolar disorder, unspecified; F32.9 Major depressive disorder, single episode, unspecified; F43.10 Post-traumatic stress disorder, unspecified; D64.9 Anemia, unspecified; Z87.442 Personal history of urinary calculi
CPT/HCPCS: 96372; 99281-25

== ENCOUNTER 2018-10-06 11:34 | Emergency (ER) | payer OTHER ==
[2018-10-06 11:40] VITALS: BP 145/72; PULSE 77; TEMP 98.7; BMI 46.7
[2018-10-06] MEDS ORDERED: DEXAMETHASONE LIQUID 0.5 MG/5 ML 240 ML BULK BOTTLE PO ONE (12:20)
[2018-10-06] MEDS ORDERED: KETOROLAC TROMETHAMINE 60 MG/2 ML VIAL IM ONE (12:20)
[2018-10-06] MEDS ORDERED: KETOROLAC TROMETHAMINE 60 MG/2 ML VIAL ONE (12:23)
[2018-10-06] MEDS ORDERED: DEXAMETHASONE SOD PHOSPHATE 10 MG/1 ML VIAL ONE (12:23)
--- NOTE | 2018-10-06 13:01 | PDOC ---
History of Present Illness - General Chief Complaint: Back Pain Stated Complaint: WON RASH ARM AND LEGS / LOWER BACK PAIN Time Seen by Provider: 10/06/18 12:12 History Source: Patient Exam Limitations: No Limitations - History of Present Illness Initial Comments: 10/06/18 13:15 Patient also here with a recent eruption of very dry, scaly and very itchy patches of skin on forearms, upper arms and ankles and knees. Thinks may be eczema but never had eczema in the past. Also complaints of re-exacerbation of chronic back pain and difficult to get into see pain management due to insurance changes. Occurred: reports: last week Severity: reports: mild, moderate Pain Location: reports: back Method of Injury: Yes: unknown Modifying Factors: improves with: None Loss of Consciousness: no loss of consciousness Associated Symptoms (Fall): denies symptoms, muscle spasms Past History - Travel Traveled outside of the country in the last 30 days: No Close contact w/someone who was outside of country & ill: No - Past Medical History Allergies/Adverse Reactions: Allergies Allergy/AdvReac Type Severity Reaction Status Date / Time No Known Allergies Allergy Verified 10/01/18 12:06 Home Medications: Ambulatory Orders Aripiprazole [Abilify] 20 mg PO DAILY 03/03/17 Cyclobenzaprine HCl [Flexeril 10 mg] 10 mg PO TID PRN #9 tablet 08/21/17 Ferrous Sulfate 325 mg PO ASDIR 08/21/17 Sertraline HCl 50 mg PO DAILY 08/21/17 Topiramate 25 mg PO ASDIR 08/21/17 clonazePAM [Klonopin -] 0.5 mg PO DAILY PRN 08/21/17 traZODone HCL [Trazodone HCl] 100 mg PO HS 08/21/17 Anemia: Yes Asthma: No Cancer: No Cardiac Disorders: No CVA: No COPD: No CHF: No Dementia: No Diabetes: No GI Disorders: Yes Disorders: No HTN: No Hypercholesterolemia: No Kidney Stones: Yes Liver Disease: No Psychiatric Problems: Yes (bipolar, depression, PTSD) Seizures: No Thyroid Disease: No - Surgical History Abdominal Surgery: Yes (GASTRIC SLEEVE 2013) Appendectomy: No Cardiac Surgery: No Cholecystectomy: Yes Gastric Stapling: No (GASTRIC SLEEVE) GI Surgery: Yes Lung Surgery: No Neurologic Surgery: No Orthopedic Surgery: No - Suicide/Smoking/Psychosocial Hx Smoking History: Never smoked Have you smoked in the past 12 months: No Information on smoking cessation initiated: No Hx Alcohol Use: No Drug/Substance Use Hx: No Substance Use Type: None Trauma Specific PMHX - Complaint Specific PMHX Back Injury: Yes Review of Systems - Review of Systems Able to Perform ROS?: Yes Is the patient limited [place] proficient: Yes Constitutional: Yes: Symptoms Reported, See HPI, Malaise. No: Fever HEENTM: Yes: See HPI. No: Symptoms Reported Respiratory: Yes: See HPI. No: Symptoms reported Cardiac (ROS): No: Symptoms Reported ABD/GI: No: Symptoms Reported Musculoskeletal: Yes: Symptoms Reported, See HPI, Back Pain, Muscle Pain, Muscle Weakness (low back) Integumentary: Yes: Symptoms Reported, See HPI, Erythema, Lesions, Pruritus, Rash Neurological: Yes: Symptoms reported All Other Systems: Reviewed and Negative *Physical Exam - Vital Signs Last Vital Signs Temp Pulse Resp BP Pulse Ox 98.7 F 77 18 145/72 98 10/06/18 11:38 10/06/18 11:38 10/06/18 11:38 10/06/18 11:38 10/06/18 11:38 - Physical Exam General Appearance: Yes: Nourished, Appropriately Dressed, Apparent Distress, Mild Distress HEENT: positive: ERNESTO, Normal ENT Inspection, TMs Normal, Pharynx Normal Neck: positive: Supple. negative: Tender, Lymphadenopathy (R), Lymphadenopathy (L) Respiratory/Chest: positive: Lungs Clear, Normal Breath Sounds Gastrointestinal/Abdominal: positive: Normal Bowel Sounds, Soft. negative: Tender Musculoskeletal: positive: Normal Inspection, Muscle Spasm (limited range of motion secondary back pain) Extremity: positive: Normal Inspection. 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 Problem #2 acute on chronic back pain, will treat with NSAIDs and refer back to pain management. *DC/Admit/Observation/Transfer Diagnosis at time of Disposition: Eczema Qualifiers: Eczema type: unspecified Qualified Code(s): L30.9 - Dermatitis, unspecified Chronic low back pain Qualifiers: Back pain laterality: unspecified Sciatica presence: without sciatica Qualified Code(s): M54.5 - Low back pain; G89.29 - Other chronic pain - Discharge Dispostion Disposition: HOME Condition at time of disposition: Stable Decision to Admit order: No - Referrals Referrals: Ruma Darden MD [Staff Physician] - - Patient Instructions Printed Discharge Instructions: DI for Atopic Dermatitis - Adult, DI for Low Back Pain Additional Instructions: Rest, keep cool and dry- avoid strenuous activity or hot /humid environments Less hot showers, no abrasive soaps May use heavy creams like Eucerin or Cetaphil to keep skin moist , Vaseline currently recommended for better hydrating purpose May use Benadryl at night for antihistamine, Zyrtec/ Afia or Claritin for daytime antihistamine use to help with itching Bleach baths, one half cup in a full tub of water creating a dilute solution and soaking for proximally 10 minutes. This chlorine is less strong than swimming pool if properly diluted. Will not discolor skin, avoid splashing in face or eyes. This will decolonize/decontaminate skin from the bacteria that may be causing worsened eczema and itching. Some doctors recommend daily until severe episode is resolving then twice a week until healed Followup with PMD in one week if no resolution Make appointment with ship's electronic warfare officer for evaluation when possible - Post Discharge Activity Forms/Work/School Notes: Back to Work
== END 2018-10-06 12:43 | disposition home or self-care (01) ==
LOC: JERFT 11:34
PROC: 3E0233Z Introduction of Anti-inflammatory into Muscle, Percutaneous Approach (ICD-10-PCS; principal; 2018-10-06)
DX: L30.9 Dermatitis, unspecified (principal); M54.5 Low back pain; G89.29 Other chronic pain
CPT/HCPCS: 99281-25

== ENCOUNTER 2018-10-13 10:37 | Day surgery (SDC) | payer OTHER ==
[2018-10-01 12:13] VITALS: BMI 46.5
[2018-10-13 13:51] VITALS: TEMP 98
[2018-10-13 14:13] VITALS: BP 143/73; PULSE 73
--- NOTE | 2018-10-15 12:45 | PATH ---
Surgical Pathology Report Patient Name: GATO GOLD [facility]. Rec. #: [id number] /Age/Gender: 1975 (Age: 43) / F Account: [id number] Location: [facility] Taken: 10/13/2018 Received: 10/13/2018 Reported: 10/15/2018 Physicians: Mabel Dietrich M.D. Specimen(s) Received A: BX SECOND PORTION DUODENUM B: BX GASTRIC ANTRUM C: BX GE JUNCTION Clinical History Reflux, pre bariatric surgery Postoperative diagnosis: Gastritis Final Diagnosis A. DUODENUM, SECOND PORTION, BIOPSY: DUODENAL MUCOSA WITH NO PATHOLOGIC CHANGES. NO HISTOLOGIC EVIDENCE OF GLUTEN SENSITIVE ENTEROPATHY (CELIAC SPRUE) IDENTIFIED. B. STOMACH, ANTRUM, BIOPSY: GASTRIC ANTRAL MUCOSA WITH MILD REACTIVE GASTROPATHY. IMMUNOSTAIN FOR H. PYLORI IS NEGATIVE. C. GE JUNCTION, BIOPSY: GASTRIC TYPE MUCOSA WITH CHRONIC INFLAMMATION AND HYPERPLASTIC CHANGES. NO INTESTINAL METAPLASIA IDENTIFIED (NO AMES'S IDENTIFIED). Electronically Signed Jimenez Warner M.D. Gross Description A. Received in formalin, labeled "biopsy second portion of duodenum" is a pearce, irregular portion of soft tissue measuring 0.3 cm. in greatest dimension. The specimen is submitted in toto in one cassette. B. Received in formalin, labeled "biopsy gastric antrum" is a pearce, irregular portion of soft tissue measuring 0.4 cm. in greatest dimension. The specimen is submitted in toto in one cassette. C. Received in formalin, labeled "biopsy GE junction" is a pearce, irregular portion of soft tissue measuring 0.4 cm. in greatest dimension. The specimen is submitted in toto in one cassette. 10/14/2018 [facility]10/14/2018
== END 2018-10-13 14:15 | disposition home or self-care (01) ==
LOC: FASU-ENDO 10:37
PROVIDERS: ATTEND Internal Medicine Gastroenterology
PROC: 0DB68ZX Excision of Stomach, Via Natural or Artificial Opening Endoscopic, Diagnostic (ICD-10-PCS; 2018-10-13)
PROC: 0DB48ZX Excision of Esophagogastric Junction, Via Natural or Artificial Opening Endoscopic, Diagnostic (ICD-10-PCS; 2018-10-13)
PROC: 0DB98ZX Excision of Duodenum, Via Natural or Artificial Opening Endoscopic, Diagnostic (ICD-10-PCS; principal; 2018-10-13 13:28)
DX: K31.89 Other diseases of stomach and duodenum (principal); R10.13 Epigastric pain
CPT/HCPCS: 84703; 88305-TC; 88342-TC

== ENCOUNTER 2019-06-07 15:16 | Emergency (ER) | payer OTHER ==
--- NOTE | 2019-06-07 15:35 | PDOC ---
Rapid Medical Evaluation Time Seen by Provider: 06/07/19 15:34 Medical Evaluation: Allergies Allergy/AdvReac Type Severity Reaction Status Date / Time No Known Allergies Allergy Verified 10/01/18 12:06 06/07/19 15:34 I have performed a brief in-person evaluation of this patient. The patient presents with a chief complaint of: back pain, uti Pertinent physical exam findings:stable and in NAD, non-focal I have ordered the following:labs The patient will proceed to the ED for further evaluation.
[2019-06-07 15:38] VITALS: BP 100/76; PULSE 63; TEMP 98.7; BMI 39.9
[2019-06-07 16:01] LABS: BASO % 0.8 % (0-2.0); EOS % 1.3 % (0-4.5); HEMATOCRIT 30.8 % (32.4-45.2); HEMOGLOBIN 9.7 GM/dL (10.7-15.3); LYMPH % 19.8 % (8-40); MCH 25.4 pg (25.7-33.7); MCHC 31.4 g/dl (32.0-36.0); MEAN CELL VOLUME 80.8 fl (80-96); MEAN PLT VOLUME 7.8 fl (7.5-11.1); MONO % 7.2 % (3.8-10.2); NEUT % 70.9 % (42.8-82.8); PLATELET COUNT 289 K/MM3 (134-434); RBC 3.81 M/mm3 (3.60-5.2); RDW 15.6 % (11.6-15.6); WHITE BLOOD COUNT 9.3 K/mm3 (4.0-10.0)
[2019-06-07 16:14] LABS: EPI CELLS >36 /HPF (0-5/HPF); HYALINE CASTS 11 /lpf (0-8); PH,URINE 5.5 (5.0-8.0); URINE APPEARANCE TURBID; URINE BACTERIA 1072.9 /hpf (NEGATIVE); URINE BILIRUBIN NEGATIVE (NEGATIVE); URINE COLOR YELLOW; URINE GLUCOSE (UA) NEGATIVE (NEGATIVE); URINE KETONE TRACE (NEGATIVE); URINE LEUK ESTERASE 2+ (NEGATIVE); URINE NITRITE NEGATIVE (NEGATIVE); URINE PROTEIN TRACE (NEGATIVE); URINE UROBILINOGEN 0.2 mg/dL (0.2-1.0); URINE WBC 224 /hpf (0-5)
[2019-06-07 16:31] LABS: ALBUMIN 3.2 g/dl (3.4-5.0); BILIRUBIN,TOTAL 0.2 mg/dL (0.2-1); BLOOD UREA NITROGEN 12.5 mg/dL (7-18); CALCIUM 8.6 mg/dL (8.5-10.1); CREATININE 0.6 mg/dL (0.55-1.3); POTASSIUM 4.1 mmol/L (3.5-5.1); TOT PROT 6.2 g/dl (6.4-8.2)
--- NOTE | 2019-06-07 16:35 | PDOC ---
History of Present Illness - General Chief Complaint: Urinary Problem Stated Complaint: BACK PAIN Time Seen by Provider: 06/07/19 15:34 History Source: Patient - History of Present Illness Timing/Duration: reports: other Past History - Past Medical History Allergies/Adverse Reactions: Allergies Allergy/AdvReac Type Severity Reaction Status Date / Time No Known Allergies Allergy Verified 06/07/19 15:38 Home Medications: Ambulatory Orders Aripiprazole [Abilify] 20 mg PO DAILY 03/03/17 Cyclobenzaprine HCl [Flexeril 10 mg] 10 mg PO TID PRN #9 tablet 08/21/17 Ferrous Sulfate 325 mg PO ASDIR 08/21/17 Sertraline HCl 50 mg PO DAILY 08/21/17 Topiramate 25 mg PO ASDIR 08/21/17 clonazePAM [Klonopin -] 0.5 mg PO DAILY PRN 08/21/17 traZODone HCL [Trazodone HCl] 100 mg PO HS 08/21/17 Fluconazole [Diflucan] 150 mg PO ONCE #1 tablet 06/07/19 Phenazopyridine HCl [Pyridium] 100 mg PO TID #6 tablet 06/07/19 Sulfamethoxazole/Trimethoprim [Bactrim Ds Tablet] 1 each PO BID #14 tablet 06/07 Anemia: Yes Asthma: No Cancer: No Cardiac Disorders: No CVA: No COPD: No CHF: No Dementia: No Diabetes: No GI Disorders: Yes Disorders: No HTN: No Hypercholesterolemia: No Kidney Stones: Yes Liver Disease: No Psychiatric Problems: Yes (bipolar, depression, PTSD) Seizures: No Thyroid Disease: No - Surgical History Abdominal Surgery: Yes (GASTRIC SLEEVE 2014, gastic bypass) Appendectomy: No Cardiac Surgery: No Cholecystectomy: Yes Gastric Stapling: No (GASTRIC SLEEVE) GI Surgery: Yes Lung Surgery: No Neurologic Surgery: No Orthopedic Surgery: No - Psycho Social/Smoking Cessation Hx Smoking History: Never smoked Have you smoked in the past 12 months: No Hx Alcohol Use: No Drug/Substance Use Hx: No Substance Use Type: None Review of Systems - Review of Systems Constitutional: No: Chills, Fever ABD/GI: No: Nausea, Vomiting, Abdominal cramping : Yes: Burning, Dysuria. No: Flank Pain, Hematuria *Physical Exam - Vital Signs Last Vital Signs Temp Pulse Resp BP Pulse Ox 98.7 F 63 14 100/76 99 06/07/19 15:29 06/07/19 15:29 06/07/19 15:29 06/07/19 15:29 06/07/19 15:29 - Physical Exam General Appearance: Yes: Appropriately Dressed. No: Apparent Distress HEENT: positive: Normal Voice Neck: positive: Supple Respiratory/Chest: negative: Respiratory Distress Gastrointestinal/Abdominal: positive: Soft. negative: Tender Musculoskeletal: negative: CVA Tenderness Integumentary: positive: Dry, Warm Neurologic: positive: Fully Oriented, Alert, Normal Mood/Affect ED Treatment Course - LABORATORY CBC & Chemistry Diagram: 06/07/19 15:46 06/07/19 15:46 - ADDITIONAL ORDERS Additional order review: Laboratory Results 06/07/19 15:46 Urine Color Yellow Urine Appearance Turbid Urine pH 5.5 D Ur Specific [place] 1.030 Urine Protein Trace Urine Glucose (UA) Negative Urine Ketones Trace H Urine Blood Negative Urine Nitrite Negative Urine Bilirubin Negative Urine Urobilinogen 0.2 Ur Leukocyte Esterase 2+ H Urine WBC (Auto) 224 Urine Casts (Auto) 11 U Epithel Cells (Auto) >36 Urine Bacteria (Auto) 1072.9 06/07/19 15:46 RBC 3.81 MCV 80.8 MCHC 31.4 L RDW 15.6 MPV 7.8 Neutrophils % 70.9 Lymphocytes % 19.8 Monocytes % 7.2 Eosinophils % 1.3 Basophils % 0.8 Medical Decision Making - Medical Decision Making 06/07/19 16:38 43-year-old female history of recurrent UTIs, anemia here with burning upon urination with lower back pain times several days. No hematuria nausea vomiting fever or chills. No history of kidney stone. see exam Dysuria w/ low back pain No n/v/f/c to suspect overt pyelo Well chilo and stable w/ unremarkable exam UA w/ +LE and >1K joselito WBC wnl, hgb baseline for pt, does not wish to wait for chem -Dc w/ bactrim (no prior sen on record), diflucan added as reports yeast infxn w / abx -Reasons to return d/w pt Discharge - Discharge Information Problems reviewed: Yes Clinical Impression/Diagnosis: UTI (urinary tract infection) Qualifiers: Urinary tract infection type: acute cystitis Hematuria presence: without hematuria Qualified Code(s): N30.00 - Acute cystitis without hematuria Condition: Good Disposition: HOME - Additional Discharge Information Prescriptions: Fluconazole [Diflucan] 150 mg PO ONCE #1 tablet Phenazopyridine HCl [Pyridium] 100 mg PO TID #6 tablet Sulfamethoxazole/Trimethoprim [Bactrim Ds Tablet] 1 each PO BID #14 tablet - Follow up/Referral Referrals: Onelia Hays MD [Primary Care Provider] - - Patient Discharge Instructions Patient Printed Discharge Instructions: Urinary Tract Infection Additional Instructions: Take medications as directed and return for worsening of symptoms - Post Discharge Activity Work/Back to School Note: Back to Work
== END 2019-06-07 16:58 | disposition home or self-care (01) ==
LOC: JER 15:16
DX: N30.00 Acute cystitis without hematuria (principal); D64.9 Anemia, unspecified; F31.9 Bipolar disorder, unspecified; F43.10 Post-traumatic stress disorder, unspecified; Z98.84 Bariatric surgery status; Z87.442 Personal history of urinary calculi; Z87.440 Personal history of urinary (tract) infections
CPT/HCPCS: 36415; 80053; 81003; 85025; 87086; 87491; 87591; 99282-25

== ENCOUNTER 2019-07-29 07:52 | Emergency (ER) | payer OTHER ==
[2019-07-29 08:02] VITALS: BMI 38.7
--- NOTE | 2019-07-29 08:15 | PDOC ---
History of Present Illness - General Chief Complaint: Lightheaded Stated Complaint: DIZZY/VOMITING/URI Time Seen by Provider: 07/29/19 08:09 History Source: Patient Exam Limitations: No Limitations - History of Present Illness Initial Comments: 07/29/19 08:46 Patient is a 44F with history of multiple psychiatric illnesses (patient reports ptsd, bipolar and depression), gastric sleeve in distant past with revision in february 2019 here today with nausea, vomiting, diarrhea, sore throat , headache, bodyaches and earache. Patient reports that she feels sore all over in her back and stomach after several episodes of vomiting and diarrhea last night. NBNB emesis reported. Patient states that she's been able to tolerate small amounts of water since then. 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 Patient endorses using q tips in her ear and feeling congested. Patient also complains of a rash to both of arms on the anterior distal aspect. Patient reports recently changing detergents at home. Past History - Past Medical History Allergies/Adverse Reactions: Allergies Allergy/AdvReac Type Severity Reaction Status Date / Time No Known Allergies Allergy Verified 06/07/19 15:38 Home Medications: Ambulatory Orders Aripiprazole [Abilify] 20 mg PO DAILY 03/03/17 Cyclobenzaprine HCl [Flexeril 10 mg] 10 mg PO TID PRN #9 tablet 08/21/17 Ferrous Sulfate 325 mg PO ASDIR 08/21/17 Sertraline HCl 50 mg PO DAILY 08/21/17 Topiramate 25 mg PO ASDIR 08/21/17 clonazePAM [Klonopin -] 0.5 mg PO DAILY PRN 08/21/17 traZODone HCL [Trazodone HCl] 100 mg PO HS 08/21/17 Anemia: Yes Asthma: No Cancer: No Cardiac Disorders: No CVA: No COPD: No CHF: No Dementia: No Diabetes: No GI Disorders: Yes Disorders: No HTN: No Hypercholesterolemia: No Kidney Stones: Yes Liver Disease: No Psychiatric Problems: Yes (bipolar, depression, PTSD) Seizures: No Thyroid Disease: No - Surgical History Abdominal Surgery: Yes (GASTRIC SLEEVE 2013, gastic bypass) Appendectomy: No Cardiac Surgery: No Cholecystectomy: Yes Gastric Stapling: No (GASTRIC SLEEVE) GI Surgery: Yes Lung Surgery: No Neurologic Surgery: No Orthopedic Surgery: No - Immunization History Immunization Up to Date: No - Psycho Social/Smoking Cessation Hx Smoking History: Never smoked Have you smoked in the past 12 months: No Information on smoking cessation initiated: No Hx Alcohol Use: No Drug/Substance Use Hx: No Substance Use Type: None Review of Systems - Review of Systems Able to Perform ROS?: Yes Comments:: 07/29/19 08:52 GENERAL/CONSTITUTIONAL: No fever or chills. No weakness. HEAD, EYES, EARS, NOSE AND THROAT: No change in vision. +ear pain no discharge. + sore throat. CARDIOVASCULAR: No chest pain or shortness of breath RESPIRATORY: No cough, wheezing, or hemoptysis. GASTROINTESTINAL: +nausea, +vomiting, +diarrhea no constipation. GENITOURINARY: No dysuria, frequency, or change in urination. MUSCULOSKELETAL: +diffuse bodyaches SKIN: No rash NEUROLOGIC: +headache, no vertigo, loss of consciousness, or change in strength/ sensation. ENDOCRINE: No increased thirst. No abnormal weight change HEMATOLOGIC/LYMPHATIC: No anemia, easy bleeding, or history of blood clots. ALLERGIC/IMMUNOLOGIC: No hives or skin allergy. *Physical Exam - Vital Signs Last Vital Signs Temp Pulse Resp BP Pulse Ox 98.0 F 71 18 136/86 99 07/29/19 07:58 07/29/19 07:58 07/29/19 07:58 07/29/19 07:58 07/29/19 07:58 - Physical Exam 07/29/19 08:56 GENERAL: Awake, alert, and fully oriented, in no acute distress, walking without discomfort in the ED HEAD: No signs of trauma, normocephalic, atraumatic EYES: PERRLA, EOMI, sclera anicteric, conjunctiva clear ENT: Auricles normal inspection, hearing grossly normal, nares patent, oropharynx clear without exudates. Moist mucosa. Small abrasion to left ear canal, TMs clear NECK: Normal ROM, supple, no lymphadenopathy, JVD, or masses LUNGS: No distress, speaks full sentences, clear to auscultation bilaterally HEART: Regular rate and rhythm, normal S1 and S2, no murmurs, rubs or gallops, peripheral pulses normal and equal bilaterally. ABDOMEN: Soft, nontender, normoactive bowel sounds. No guarding, no rebound. No masses EXTREMITIES: Normal inspection, Normal range of motion, no edema. No clubbing or cyanosis. NEUROLOGICAL: Cranial nerves II through XII grossly intact. Normal speech, normal gait, no focal sensorimotor deficits SKIN: Warm, Dry, normal turgor, maculopapular rash on anterior arms, approximately 2x5cm each Medical Decision Making - Medical Decision Making 07/29/19 08:59 Patient is 44F with history of multiple psych diseases and gastric sleeve surgery here today with likely viral process. Vitals normal and stable. Considered complication of gastric sleeve, but tolerating PO and having bowel movements and patient is nontender. Likely viral infection. PO challenged, passed. Given reglan and tylenol. Patient offered additional lab testing, patient refused. Offered additional IV fluids, refused. Will discharge with return precautions. Discharge - Discharge Information Problems reviewed: Yes Clinical Impression/Diagnosis: Nausea & vomiting Condition: Good Disposition: HOME - Admission No - Follow up/Referral Referrals: Beth Mac MD [Primary Care Provider] - - Patient Discharge Instructions Patient Printed Discharge Instructions: DI for Vomiting -- Adult Additional Instructions: Please return if you have any new, worsening or concerning symptoms, especially fever, increasing pain and vomiting. Please follow up with your primary care doctor this week. Please take benadryl as needed for your rash, and stop using the detergent that likely caused the rash. - Post Discharge Activity Work/Back to School Note: Back to Work
[2019-07-29] MEDS ORDERED: METOCLOPRAMIDE HCL 10 MG TABLET (FP) PO ONE ×2 (08:41→08:46)
[2019-07-29] MEDS ORDERED: ACETAMINOPHEN 325 MG TABLET (FP) PO ONE (08:41)
[2019-07-29] MEDS ORDERED: ACETAMINOPHEN 325 MG TABLET (FP) ONE (08:45)
[2019-07-29 09:31] VITALS: BP 130/77; PULSE 77; TEMP 98.4
--- NOTE | 2019-07-29 09:37 | PDOC ---
Attending Attestation - Resident Resident Name: Rolf Tripathi - ED Attending Attestation I have performed the following: I have examined & evaluated the patient, The case was reviewed & discussed with the resident, I agree w/resident's findings & plan, Exceptions are as noted - HPI HPI: 07/29/19 09:22 Ms. Hoffman is a 44 yo F who presents to the ER with a complaint of nausea, vomiting and diarrhea The patient has a h/o bipolar and depression, gastric sleeve in distant past with revision in february 2019 Pt reports having nausea, vomiting, diarrhea, sore throat, headache, bodyaches and earache. Pt has had 5 episodes of non bloody, non bilious emesis this morning no actual abdominal pain Patient has been able to tolerate small amounts of water since then. 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 Pt is supposed to be at work now but could not make it - Physicial Exam PE: 07/29/19 09:37 GENERAL: The patient is in no acute distress. ENT: Ears normal, nares patent, oropharynx clear without exudates. Moist mucous membranes. NECK: Normal range of motion, supple LUNGS: Breath sounds equal, clear to auscultation bilaterally. No wheezes, and no crackles. HEART:Regular rate and rhythm, normal S1 and S2 without murmur, rub or gallop. ABDOMEN: Soft, nondistended, non tender to palpation EXTREMITIES: Normal range of motion, no edema. NEUROLOGICAL: Cranial nerves II through XII grossly intact. Normal speech. No focal neurological deficits. SKIN: Warm, Dry, normal turgor, no rashes or lesions noted. - Medical Decision Making 07/29/19 09:38 44 yo F presenting with nausea and vomiting No fevers No abdominal pain Pt is non tender to palpation Pt is unable to stay for a work up now Pt tolerating po Pt would like to go home Pt told to return to the ER for abd pain, tenderness, fevers, chills inability to tolerate po 07/29/19 10:17 EKG: Normal sinus rhythm, rate of 68 bpm, axis is normal, intervals are normal, no ST elevation or depression, T wave inversion noted in leads V1 through V3, III. T wave flattening in aVF
--- NOTE | 2019-07-31 13:37 | EKG ---
Test Reason : Blood Pressure : / mmHG Vent. Rate : 068 BPM Atrial Rate : 068 BPM P-R Int : 178 ms QRS Dur : 094 ms QT Int : 446 ms P-R-T Axes : 027 037 020 degrees QTc Int : 474 ms NORMAL SINUS RHYTHM CANNOT RULE OUT ANTERIOR INFARCT , AGE UNDETERMINED ABNORMAL ECG WHEN COMPARED WITH ECG OF 05-DEC-2016 12:07, NO SIGNIFICANT CHANGE WAS FOUND Confirmed by ANGIE COURTNEY MD ([id number]) on 07/31/2019 1:37:02 PM Referred By: Confirmed By:ANGIE COURTNEY MD
== END 2019-07-29 09:25 | disposition home or self-care (01) ==
LOC: JER 07:52
DX: R11.2 Nausea with vomiting, unspecified (principal); Z98.84 Bariatric surgery status; N20.0 Calculus of kidney; K92.9 Disease of digestive system, unspecified; F31.9 Bipolar disorder, unspecified; F43.10 Post-traumatic stress disorder, unspecified
CPT/HCPCS: 93005; 93010; 99283-25

== ENCOUNTER 2019-08-31 07:54 | Emergency (ER) | payer OTHER ==
[2019-08-31 08:02] VITALS: BP 137/78; PULSE 82; TEMP 98.1; BMI 38.2
--- NOTE | 2019-08-31 08:20 | PDOC ---
History of Present Illness - General Chief Complaint: Injury Stated Complaint: BACK AND NECK PAIN Time Seen by Provider: 08/31/19 08:17 - History of Present Illness Initial Comments: 08/31/19 08:17 CHIEF COMPLAINT: fall HISTORY OF PRESENT ILLNESS: 44 yo F with no significant PMH presents to [facility] with neck and upper back pain s/p fall yesterday. Patient reports she slipped and fell down stairs and now feels stiffness to her neck and upper back. She denies any head trauma, LOC, loss of sensation to any extremities. No recent travel or sick contacts. PAST MEDICAL HISTORY: Denies past medical history FAMILY HISTORY: Denies SOCIAL HISTORY: Denies tobacco, alcohol, illicit drug use. SURGICAL HISTORY: Denies ALLERGIES: No known drug allergies REVIEW OF SYSTEMS General/Constitutional: Denies fever or chills. Denies weakness, weight change. HEENT: Denies change in vision. Denies ear pain or discharge. Denies sore throat. Cardiovascular: Denies chest pain or shortness of breath. Respiratory: Denies cough, wheezing, or hemoptysis. Gastrointestinal: Denies nausea, vomiting, diarrhea or constipation. Denies rectal bleeding. Genitourinary: Denies dysuria, frequency, or change in urination. Musculoskeletal: Pain to neck and upper back. Skin and breasts: Denies rash or easy bruising. Neurologic: Denies headache, vertigo, loss of consciousness, or loss of sensation. Psychiatric: Denies depression or anxiety. PHYSICAL EXAM General Appearance: Well-appearing, appropriately dressed. No apparent distress , no intoxication. HEENT: EOMI, PERRLA, normal ENT inspection, normal voice, TMs normal, pharynx normal. No conjunctival pallor. No photophobia, scleral icterus. Neck: Supple. Trachea midline. No tenderness, rigidity, carotid bruit, stridor , lymphadenopathy, or thyromegaly. Respiratory/Chest: Lungs CTAB. No shortness of breath, chest tenderness, respiratory distress, accessory muscle use. No crackles, rales, rhonchi, stridor , wheezing, dullness Cardiovascular: RRR. S1, S2. No JVD, murmur, bradycardia, tachycardia. Vascular Pulses: Dorsalis-Pedis (R): 2+, Dorsalis-Pedis (L): 2+ Gastrointestinal/Abdominal: Normal bowel sounds. Abdomen soft, non-distended. No tenderness or rebound tenderness. No organomegaly, pulsatile mass, guarding , hernia, hepatomegaly, splenomegaly. Lymphatic: No adenopathy, tenderness. Musculoskeletal/Extremities: Mild paravertebral tenderness to T1-T5 back. No midline tenderness to spine. Normal inspection. FROM of all extremities, normal capillary refill. Pelvis Stable. No CVA tenderness. No tenderness to extremities, pedal edema, swelling, erythema or deformity. Integumentary: Appropriate color, dry, warm. 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 Fully oriented, alert. Appropriate mood/affect. Motor strength 5/5. No appreciable EOM palsy, facial droop or sensory deficit. 08/31/19 08:22 Past History - Past Medical History Allergies/Adverse Reactions: Allergies Allergy/AdvReac Type Severity Reaction Status Date / Time No Known Allergies Allergy Verified 08/31/19 08:02 Home Medications: Ambulatory Orders Aripiprazole [Abilify] 20 mg PO DAILY 03/03/17 traZODone HCL [Trazodone HCl] 300 mg PO HS 08/21/17 Cyclobenzaprine HCl 10 mg PO TID #30 tablet 08/31/19 Triamcinolone 0.1% Cream [Aristocort 0.1% Cream -] 1 applic TP BID #1 tube 08/31 Anemia: Yes Asthma: No Cancer: No Cardiac Disorders: No CVA: No COPD: No CHF: No Dementia: No Diabetes: No GI Disorders: Yes Disorders: No HTN: No Hypercholesterolemia: No Kidney Stones: Yes Liver Disease: No Psychiatric Problems: Yes (bipolar, depression, PTSD) Seizures: No Thyroid Disease: No - Surgical History Abdominal Surgery: Yes (GASTRIC SLEEVE 2013, gastic bypass) Appendectomy: No Cardiac Surgery: No Cholecystectomy: Yes Gastric Stapling: No (GASTRIC SLEEVE) GI Surgery: Yes Lung Surgery: No Neurologic Surgery: No Orthopedic Surgery: No - Immunization History Immunization Up to Date: No - Psycho Social/Smoking Cessation Hx Smoking History: Never smoked Have you smoked in the past 12 months: No Hx Alcohol Use: No Drug/Substance Use Hx: No Substance Use Type: None Trauma Specific PMHX - Complaint Specific PMHX Back Injury: Yes *Physical Exam - Vital Signs Last Vital Signs Temp Pulse Resp BP Pulse Ox 98.1 F 82 16 137/78 02/12/20 07:59 08/31/19 07:59 08/31/19 07:59 08/31/19 07:59 Medical Decision Making - Medical Decision Making 08/31/19 08:40 44 yo F with no significant PMH presents to [facility] with neck and upper back pain s/p fall yesterday. -cervical/thoracic spine x-ray Patient with full lateral ROM/flexion/extension to neck. No midline spine tenderness. Likely muscle spasm secondary to fall. Will rx cyclobenzaprine with Tylenol as patient is s/p gastric sleeve. Advised patient to take medication as prescribed and follow up with ortho if symptoms persist. Advised patient of signs and symptoms for return to ED. Patient verbalized understanding and agrees to plan. Discharge - Discharge Information Problems reviewed: Yes Clinical Impression/Diagnosis: Muscle spasm Eczema Qualifiers: Eczema type: unspecified Qualified Code(s): L30.9 - Dermatitis, unspecified Condition: Stable Disposition: HOME - Admission No - Additional Discharge Information Prescriptions: Cyclobenzaprine HCl 10 mg PO TID #30 tablet Triamcinolone 0.1% Cream [Aristocort 0.1% Cream -] 1 applic TP BID #1 tube - Follow up/Referral Referrals: Beth Mac MD [Primary Care Provider] - Jose Larose DO [Staff Physician] - - Patient Discharge Instructions Patient Printed Discharge Instructions: Eczema, DI for Muscle Spasm Additional Instructions: Please use medications as prescribed. Do NOT drink alcohol, drive, or operate machinery while taking cyclobenzaprine as this can make you drowsy. If you develop loss of sensation to your extremities, nausea, weakness, change in vision, worsening pain, or any new or worsening symptoms, please return to the ER. - Post Discharge Activity Work/Back to School Note: Back to Work
== END 2019-08-31 09:24 | disposition home or self-care (01) ==
LOC: JERFT 07:54
DX: R25.2 Cramp and spasm (principal); L30.9 Dermatitis, unspecified; Z98.84 Bariatric surgery status; F31.9 Bipolar disorder, unspecified; N20.0 Calculus of kidney; K92.9 Disease of digestive system, unspecified; D64.9 Anemia, unspecified
CPT/HCPCS: 72050-TC-FY; 72070-TC-FY; 99283-25

== ENCOUNTER 2020-11-18 11:29 | Emergency (ER) | payer OTHER ==
[2020-11-19 04:09] LABS: SARS-CoV-2 NAA Not Detected (Not Detected)
== END 2020-11-18 12:28 | disposition home or self-care (01) ==
LOC: JVIRT 11:29
DX: Z20.822 Contact with and (suspected) exposure to COVID-19 (principal)
CPT/HCPCS: C9803; G2251-GT; Q3014-GT; U0003; U0005

== ENCOUNTER 2020-11-22 08:58 | Day surgery (SDC) | payer OTHER ==
[2020-11-22] MEDS ORDERED: FERRIC CARBOXYMALTOSE 750 MG in SODIUM CHLORIDE 250 ML IVPB ONE (10:00)
[2020-11-22 10:08] VITALS: BP 129/68; PULSE 80; TEMP 98.6
== END 2020-11-22 11:15 | disposition home or self-care (01) ==
LOC: FM/S 08:58 → EDSTATUS 08:58 → FINFUSION 08:58
PROVIDERS: ATTEND Obstetrics & Gynecology
PROC: 3E033GC Introduction of Other Therapeutic Substance into Peripheral Vein, Percutaneous Approach (ICD-10-PCS; principal; 2020-11-22)
DX: D50.9 Iron deficiency anemia, unspecified (principal)
CPT/HCPCS: 96365; J1439

== ENCOUNTER 2020-11-30 10:00 | Day surgery (SDC) | payer OTHER ==
[2020-11-30] MEDS ORDERED: FERRIC CARBOXYMALTOSE 750 MG in SODIUM CHLORIDE 250 ML IVPB ONE (11:00)
[2020-11-30 12:21] VITALS: BP 138/66; PULSE 68; TEMP 98.6
== END 2020-11-30 12:29 | disposition home or self-care (01) ==
LOC: FM/S 10:00 → EDSTATUS 10:00 → FINFUSION 10:00
PROVIDERS: ATTEND Obstetrics & Gynecology
PROC: 3E033GC Introduction of Other Therapeutic Substance into Peripheral Vein, Percutaneous Approach (ICD-10-PCS; principal; 2020-11-30)
DX: D50.9 Iron deficiency anemia, unspecified (principal)
CPT/HCPCS: 84703; 96365; J1439

== ENCOUNTER 2021-02-11 21:06 | Emergency (ER) | payer OTHER ==
[2021-02-11 21:22] VITALS: BP 162/92; PULSE 71; TEMP 98.7; BMI 31.6
[2021-02-11] MEDS ORDERED: ACETAMINOPHEN/CAFFEINE/BUTALBITAL 1 TAB PO ONE (22:00)
[2021-02-11] MEDS ORDERED: ACETAMINOPHEN/CAFFEINE/BUTALBITAL 1 TAB ONE (22:22)
[2021-02-11] MEDS ORDERED: SODIUM CHLORIDE 1,000 ML IV STA (22:59)
[2021-02-11] MEDS ORDERED: METOCLOPRAMIDE HCL INJECTION 10 MG/2 ML VIAL IVPB ONE (22:59)
[2021-02-11] MEDS ORDERED: METOCLOPRAMIDE HCL INJECTION 10 MG/2 ML VIAL ONE (23:20)
[2021-02-11] MEDS ORDERED: KETOROLAC TROMETHAMINE 30 MG/1 ML VIAL IVPUSH ONE (23:39)
[2021-02-11] MEDS ORDERED: KETOROLAC TROMETHAMINE 30 MG/1 ML VIAL ONE (23:51)
== END 2021-02-11 23:50 | disposition left against medical advice (07) ==
LOC: JER 21:06
PROC: 3E033NZ Introduction of Analgesics, Hypnotics, Sedatives into Peripheral Vein, Percutaneous Approach (ICD-10-PCS; principal; 2021-02-11)
PROC: 3E0333Z Introduction of Anti-inflammatory into Peripheral Vein, Percutaneous Approach (ICD-10-PCS; 2021-02-11)
PROC: 3E0337Z Introduction of Electrolytic and Water Balance Substance into Peripheral Vein, Percutaneous Approach (ICD-10-PCS; 2021-02-11)
DX: G43.009 Migraine without aura, not intractable, without status migrainosus (principal); R53.83 Other fatigue
CPT/HCPCS: 99284-25; C9803; U0003; U0005

== ENCOUNTER 2021-06-26 10:28 | Emergency (ER) | payer OTHER ==
[2021-06-26 10:49] VITALS: BP 131/82; PULSE 70; TEMP 98.5; BMI 35.7
[2021-06-26] MEDS ORDERED: ACETAMINOPHEN 1000 MG/100 ML VIAL IVPB ONE (11:27)
[2021-06-26] MEDS ORDERED: METOCLOPRAMIDE HCL INJECTION 10 MG/2 ML VIAL IVPUSH ONE (11:27)
[2021-06-26] MEDS ORDERED: KETOROLAC TROMETHAMINE 30 MG/1 ML VIAL IVPUSH ONE (11:27)
[2021-06-26] MEDS ORDERED: SODIUM CHLORIDE 1,000 ML IV STA (11:27)
[2021-06-26] MEDS ORDERED: KETOROLAC TROMETHAMINE 15 MG/ML VIAL ONE (11:48)
[2021-06-26] MEDS ORDERED: ACETAMINOPHEN INJECTION 100 ML IVPB ONE (11:51)
[2021-06-26] MEDS ORDERED: METOCLOPRAMIDE HCL INJECTION 10 MG/2 ML VIAL ONE (11:54)
[2021-06-26 12:03] LABS: BASO % 0.6 % (0-2.0); EOS % 1.3 % (0-4.5); HEMATOCRIT 43.1 % (32.4-45.2); HEMOGLOBIN 14.8 GM/dL (10.7-15.3); LYMPH % 38.4 % (8-40); MCH 31.5 pg (25.7-33.7); MCHC 34.3 g/dl (32.0-36.0); MEAN PLT VOLUME 7.8 fl (7.5-11.1); MONO % 6.3 % (3.8-10.2); NEUT % 53.4 % (42.8-82.8); PLATELET COUNT 247 10^3/uL (134-434); RBC 4.68 M/mm3 (3.60-5.2); WHITE BLOOD COUNT 7.9 K/mm3 (4.0-10.0)
[2021-06-26 12:27] LABS: CHLORIDE 108 mmol/L (98-107); SODIUM 140 mmol/L (136-145)
[2021-06-26 12:30] LABS: ALBUMIN 3.9 g/dl (3.4-5.0); ANION GAP 8 MMOL/L (8-16); CO2 24 mmol/L (21-32); GLUCOSE,RANDOM 97 mg/dL (74-106); MAGNESIUM 2.5 mg/dL (1.8-2.4)
[2021-06-26 12:31] LABS: LIPASE 73 U/L (73-393)
[2021-06-26 12:33] LABS: CREATININE 0.9 mg/dL (0.55-1.3); PHOSPHOROUS 3.4 mg/dL (2.5-4.9); SGPT/ALT 21 U/L (13-61)
[2021-06-26 12:34] LABS: TOT PROT 7.6 g/dl (6.4-8.2)
[2021-06-26 12:35] LABS: BILIRUBIN,TOTAL 0.3 mg/dL (0.2-1); SGOT/AST 10 U/L (15-37)
[2021-06-26 12:36] LABS: ALK PHOS 72 U/L (45-117)
[2021-06-26 12:39] LABS: BLOOD UREA NITROGEN 17.8 mg/dL (7-18)
[2021-06-26 13:46] LABS: PH,URINE 6.5 (5.0-8.0); URINE APPEARANCE TURBID; URINE BILIRUBIN NEGATIVE (NEGATIVE); URINE COLOR YELLOW; URINE GLUCOSE (UA) NEGATIVE (NEGATIVE); URINE KETONE TRACE (NEGATIVE); URINE LEUK ESTERASE NEGATIVE (NEGATIVE); URINE NITRITE NEGATIVE (NEGATIVE); URINE PROTEIN NEGATIVE (NEGATIVE)
== END 2021-06-26 14:50 | disposition home or self-care (01) ==
LOC: JERFT 10:28
PROC: 3E033GC Introduction of Other Therapeutic Substance into Peripheral Vein, Percutaneous Approach (ICD-10-PCS; principal; 2021-06-26)
DX: R51.9 Headache, unspecified (principal); R11.2 Nausea with vomiting, unspecified
CPT/HCPCS: 36415; 74177-TC; 80053; 81003; 82550; 83690; 83735; 84100; 84439; 84443; 84484; 84703; 85025; 87086; 93005; 93010; 99285-25; C9803; J0131; Q9967; U0003; U0005

== ENCOUNTER 2022-10-15 13:19 | Emergency (ER) | payer OTHER ==
[2022-10-15 13:46] VITALS: RESP 18; TEMP 98.8; BMI 38.9
[2022-10-15] MEDS ORDERED: SODIUM CHLORIDE 0.9% 500 ML INFUS.BAG IV ONE (13:55)
[2022-10-15] MEDS ORDERED: METOCLOPRAMIDE HCL INJECTION 10 MG/2 ML VIAL IVPUSH ONE (13:55)
[2022-10-15] MEDS ORDERED: ACETAMINOPHEN 1000 MG/100 ML BAG IVPB ONE (13:55)
[2022-10-15] MEDS ORDERED: FAMOTIDINE 20 MG/50 ML IVPB 20 MG/50 ML MG IVPB ONE ×2 (13:57→14:00)
[2022-10-15] MEDS ORDERED: ACETAMINOPHEN INJECTION 100 ML IVPB ONE (14:00)
[2022-10-15] MEDS ORDERED: METOCLOPRAMIDE HCL INJECTION 10 MG/2 ML VIAL ONE (14:00)
[2022-10-15 15:04] LABS: BASO % 0.6 % (0-2.0); HEMATOCRIT 35.6 % (32.4-45.2); LYMPH % 25.3 % (8-40); MCHC 33.8 g/dl (32.0-36.0); MEAN CELL VOLUME 88.7 fl (80-96); MEAN PLT VOLUME 8.5 fl (7.5-11.1); NEUT % 67.1 % (42.8-82.8); PLATELET COUNT 260 10^3/uL (134-434); RBC 4.01 M/mm3 (3.60-5.2); RDW 13.4 % (11.6-15.6); URINE APPEARANCE CLEAR; URINE BILIRUBIN NEGATIVE (NEGATIVE); URINE COLOR YELLOW; URINE GLUCOSE (UA) NEGATIVE (NEGATIVE); URINE KETONE NEGATIVE (NEGATIVE); URINE LEUK ESTERASE NEGATIVE (NEGATIVE); URINE NITRITE NEGATIVE (NEGATIVE); URINE PROTEIN NEGATIVE (NEGATIVE); URINE UROBILINOGEN 0.2 mg/dL (0.2-1.0); WHITE BLOOD COUNT 9.2 K/mm3 (4.0-10.0)
[2022-10-15 15:10] LABS: INR 0.97 (0.83-1.09); PROTHROMBIN TIME (PATIENT) 11.3 SEC (9.7-13.0)
[2022-10-15 15:13] LABS: ACTIVATED PTT 26.2 SECONDS (25.2-36.5)
[2022-10-15 15:24] LABS: ALBUMIN 3.1 g/dl (3.4-5.0); CALCIUM 7.9 mg/dL (8.5-10.1)
[2022-10-15 15:25] LABS: BLOOD UREA NITROGEN 19.4 mg/dL (7-18)
[2022-10-15 15:27] LABS: CREATININE 0.8 mg/dL (0.55-1.3)
[2022-10-15 15:29] LABS: BILIRUBIN,TOTAL 0.2 mg/dL (0.2-1); TOT PROT 6.2 g/dl (6.4-8.2)
[2022-10-15 15:34] LABS: N-TERMINAL BNP 247.4 pg/ml (5-125)
[2022-10-15] MEDS ORDERED: KETOROLAC TROMETHAMINE 15 MG/ML VIAL IVPUSH ONE (15:38)
[2022-10-15] MEDS ORDERED: KETOROLAC TROMETHAMINE 15 MG/ML VIAL ONE (16:56)
[2022-10-15 18:10] VITALS: BP 117/72; PULSE 83
== END 2022-10-15 18:41 | disposition home or self-care (01) ==
LOC: JER 13:19
PROC: 3E033GC Introduction of Other Therapeutic Substance into Peripheral Vein, Percutaneous Approach (ICD-10-PCS; principal; 2022-10-15)
PROC: 3E033GC Introduction of Other Therapeutic Substance into Peripheral Vein, Percutaneous Approach (ICD-10-PCS; 2022-10-15)
PROC: 3E033GC Introduction of Other Therapeutic Substance into Peripheral Vein, Percutaneous Approach (ICD-10-PCS; 2022-10-15)
PROC: 3E033GC Introduction of Other Therapeutic Substance into Peripheral Vein, Percutaneous Approach (ICD-10-PCS; 2022-10-15)
DX: R07.89 Other chest pain (principal); J06.9 Acute upper respiratory infection, unspecified; J20.9 Acute bronchitis, unspecified; Z20.822 Contact with and (suspected) exposure to COVID-19
CPT/HCPCS: 0241U-QW; 36415; 71045-TC-FY; 71275-TC; 80053; 81003; 83735; 83880; 84443; 84484; 84703; 85025; 85379; 85610; 85730; 87086; 93005; 93010; 99285-25; Q9967